=== PATIENT | male | born 1955 | race Caucasian/White ===

== ENCOUNTER → 2016-12-13 | Outpatient (CLI) | payer BC ==
[~2016-12-13] MED LIST: BENA20TA14 PO; INSDGI SC; LEVO25TA PO; LIRA18IN SQ; OMEP20TA PO; PIOG15TA26 PO; PRED1SUS3 OPR; SERT50TA PO; SIMV10TA5 PO
--- NOTE | 2016-12-13 08:44 | DIAGNOSTIC IMAGING REPORT ---
SOFT TIS HEAD/NECK-THYROID HISTORY: Nodule E04.1 Thyroid [id number] COMPARISON: None. FINDINGS: Right lobe: Maximum dimension 4.1 cm. Several small sub-5 mm nodular densities. No evidence for significant or dominant nodule. Left lobe: Maximum dimension 3.1 cm. No significant nodularity. Isthmus: Normal IMPRESSION: Several small low suspicion right thyroid nodules. No evidence for a dominant or suspicious thyroid nodule at the current The above report was generated using voice recognition software. It may contain grammatical, syntax or spelling errors. Electronically signed by: Miguel Angel Herrera M.D. 12/13/2016 8:43 AM Dictated Date/Time: 12/13/2016 8:41 AM
[2016-12-13 10:06] LABS: CHOLESTEROL/HDL RATIO 4.3; THYROID STIMULATING HORMONE 1.7 uIu/ml (0.300-4.500)
== END | disposition home or self-care (01) ==
LOC: C.ULTR 08:17
PROVIDERS: ATTEND Internal Medicine Endocrinology, Diabetes & Metabolism
DX: E04.1 Nontoxic single thyroid nodule (principal); E11.65 Type 2 diabetes mellitus with hyperglycemia; Z79.4 Long term (current) use of insulin

== ENCOUNTER → 2017-02-15 | Outpatient (CLI) | payer BC ==
[2017-02-15 12:43] LABS: BLOOD UREA NITROGEN 22 mg/dl (7-18); CALCIUM 9.4 mg/dl (8.5-10.1); CARBON DIOXIDE 30 mmol/L (21-32); CREATININE 1.25 mg/dl (0.60-1.40); GLUCOSE 163 mg/dl (70-99); POTASSIUM 3.9 mmol/L (3.5-5.1); SODIUM 138 mmol/L (136-145)
== END | disposition home or self-care (01) ==
LOC: C.LAB1850 11:03
PROVIDERS: ATTEND Internal Medicine Endocrinology, Diabetes & Metabolism
DX: E11.22 Type 2 diabetes mellitus with diabetic chronic kidney disease (principal)